=== PATIENT | female | born 1955 | race Asian ===

== ENCOUNTER 2019-09-21 11:52 | Emergency (ER) | payer OTHER ==
[~2019-09-21] VITALS: Ht 154.9 cm; Wt 51.3 kg
[2019-09-21 12:07] VITALS: BP 136/69
--- NOTE | 2019-09-21 12:40 | NUR ---
63 Y/O FEMALE BIB DAUGHTER D/T ABD PAIN THAT BEGAN TODAY. STATES PAIN IS A "TWISTING" SENSATION, DENIES ANY VOMITING, DIARRHEA. LAST BM: TODAY, NORMAL PER PT. DENIES ANY CHILLS/FEVER/COUGH. VSS. AAOX4. PT STATES SHE IS FEELING WEAK D/T ABD PAIN. NO PMH NKA
[2019-09-21] MEDS ORDERED: FAMOTIDINE 20 MG TAB PO ONE (13:10)
[2019-09-21] MEDS ORDERED: ALUMINUM HYD/MAG/SIMETHICONE 30 ML UDC PO ONE (13:10)
[2019-09-21 13:31] LABS: BASOPHILS % (AUTO) 0.1 % (0.0-2.0); EOSINOPHILS % (AUTO) 0.4 % (0.0-4.0); HEMATOCRIT 39.8 % (36-48); HEMOGLOBIN 13.2 g/dL (12.0-16.0); MEAN CORPUSCULAR HEMOGLOBIN 30 pg (27-31); MEAN CORPUSCULAR HGB CONC 33 g/dL (33-37); MEAN CORPUSCULAR VOLUME 91.6 fL (80-94); MONOCYTES # (AUTO) 0.7 K/uL (0.8-1.0); MONOCYTES % (AUTO) 5.2 % (1.7-9.3); NEUTROPHILS # (AUTO) 11.1 K/uL (1.8-7.7); NEUTROPHILS % (AUTO) 86.3 % (42.2-75.2); PLATELET COUNT (AUTO) 200 K/uL (140-450); RED BLOOD CELL COUNT(AUTO) 4.34 MIL/uL (4.20-5.40); RED CELL DISTRIBUTION WIDTH 12.9 % (11.6-13.7); WHITE BLOOD COUNT (AUTO) 12.9 K/uL (4.8-10.8)
[2019-09-21 13:55] LABS: ALBUMIN 3.8 g/dL (3.4-5.0); ANION GAP 14.5 (8-16); CARBON DIOXIDE 22.1 mmol/L (21-32); CREATININE 0.7 mg/dL (0.6-1.3); POTASSIUM 3.6 mmol/L (3.5-5.1); TOTAL BILIRUBIN 0.7 mg/dL (0.0-1.0)
[2019-09-21 14:36] VITALS: BP 136/69
== END 2019-09-21 14:36 | disposition home or self-care (01) ==
LOC: MED 11:52
DX: K29.70 Gastritis, unspecified, without bleeding (principal); R03.0 Elevated blood-pressure reading, without diagnosis of hypertension
CPT/HCPCS: 36415; 80053; 81002; 83690; 84484; 85025; 93005; 99284